=== PATIENT | female | born 1930 | race Caucasian/White ===

== ENCOUNTER 2016-07-19 18:59 | Emergency (ER) | payer MEDICARE ==
[~2016-07-19] VITALS: Ht 149.9 cm; Wt 48.9 kg
[2016-07-19 19:04] VITALS: BP 188/83
[2016-07-19] MEDS ORDERED: LIDOCAINE 1%-EPI 1:100K, 20ML SQ ONE (20:00)
[2016-07-19] MEDS ORDERED: LIDOCAINE 1%-EPI 1:100K, 30ML ONE (20:33)
== END 2016-07-19 21:24 | disposition home or self-care (01) ==
LOC: ED 21:10
DX: L03.312 Cellulitis of back [any part except buttock and flank] (principal); L72.3 Sebaceous cyst; I10 Essential (primary) hypertension; E03.9 Hypothyroidism, unspecified; Z90.710 Acquired absence of both cervix and uterus
CPT/HCPCS: 10060

== ENCOUNTER → 2018-01-01 | Outpatient (CLI) | payer MEDICARE ==
[~2018-01-01] MED LIST: ASPI-621 PO; LEVO25TA4 PO; LEVO50TA PO; LISI-167 PO
== END | disposition home or self-care (01) ==
LOC: CARD 11:56
PROVIDERS: ATTEND Family Medicine
DX: I48.91 Unspecified atrial fibrillation (principal); I49.8 Other specified cardiac arrhythmias
CPT/HCPCS: 93225; 93226

== ENCOUNTER → 2020-03-13 | Outpatient (CLI) | payer MEDICARE ==
[~2020-03-13] MED LIST changes: -ASPI-621 PO; +ASPI81TA45 PO
== END | disposition home or self-care (01) ==
LOC: CVU 09:39
PROVIDERS: ATTEND Internal Medicine Cardiovascular Disease
DX: I65.22 Occlusion and stenosis of left carotid artery (principal); I10 Essential (primary) hypertension; R93.1 Abnormal findings on diagnostic imaging of heart and coronary circulation
CPT/HCPCS: 93880

== ENCOUNTER 2021-01-15 11:55 | Outpatient (CLI) | payer MEDICARE ==
[~2021-01-15 11:55] MED LIST changes: +REGADENOSON 0.4 MG/5 ML SYRINGE ONE
== END 2021-01-15 23:59 | disposition home or self-care (01) ==
LOC: CFH 11:55
PROVIDERS: ATTEND Internal Medicine Cardiovascular Disease
DX: R07.89 Other chest pain (principal); I10 Essential (primary) hypertension
CPT/HCPCS: 78452; 93017; A9502; J2785